=== PATIENT | male | born 1950 | race Caucasian/White ===

== ENCOUNTER 2017-03-23 09:46 | Day surgery (SDC) | payer BC, MEDICARE ==
--- NOTE | ~2017-03-23 | EGD ---
EGD REPORT [facility] [address] [place] [address] NAME: DONNIE MCCULLOUGH : [birth year] STATUS : REG [facility]#: [id number] AGE: 66 ADM/REG DATE : 03/23/17 MR#: [id number] REPORT SERV DATE: 03/23/17 DICTATED BY: ALISIA PEÑA DATE: 03/23/17 REPORT STATUS : Draft TRANSCRIBED BY: [employer] DATE: 03/23/17 [facility] Patient Name: Donnie Mccullough Date of : 1950 Attending MD: ALISIA PEÑA MD Procedure Date No Time: 03/23/2017 Procedure: Colonoscopy Indications: Rectal bleeding Referring MD: Vannessa Smith MD Medicines: as per anesthesia Complications: No immediate complications. Procedure: Pre-Anesthesia Assessment: - ASA Grade Assessment: III - A patient with severe systemic disease. After I obtained informed consent, the scope was passed under direct vision. Throughout the procedure, the patient's blood pressure, pulse, and oxygen saturations were monitored continuously. The PCF [id number] was introduced through the anus and advanced to the cecum, identified by appendiceal orifice and ileocecal valve. The colonoscopy was performed without difficulty. The patient tolerated the procedure. The quality of the bowel preparation was adequate to identify polyps. Findings: The perianal and digital rectal examinations were normal. A few small and large-mouthed diverticula were found in the transverse colon and in the ascending colon. Internal hemorrhoids were found during endoscopy and were mild. Impression: - Diverticulosis in the transverse colon and in the ascending colon. - Internal hemorrhoids. Recommendation: - Repeat colonoscopy in 5 years for surveillance. Procedure Code(s): --- Professional --- 42124, Colonoscopy, flexible, proximal to splenic flexure; diagnostic, with or without collection of specimen(s) by brushing or washing, with or without colon decompression (separate procedure) Diagnosis Code(s): --- Professional --- K64.8, Other hemorrhoids K57.30, Diverticulosis of large intestine without EGD REPORT [address] [facility] [place] [address] NAME: DONNIE MCCULLOUGH : [birth year] STATUS : REG [facility] [place] PAT#: [id number] AGE: 66 ADM/REG DATE : 03/23/17 MR#: [id number] REPORT SERV DATE: 03/23/17 DICTATED BY: ALISIA PEÑA. DATE: 03/23/17 REPORT STATUS : Draft TRANSCRIBED BY: [employer] DATE: 03/23/17 perforation or abscess without bleeding K62.5, Hemorrhage of anus and rectum CPT copyright 2013 [employer]. All rights reserved. The codes documented in this report are preliminary and upon apparel stock checker review may be revised to meet current compliance requirements. ALISIA PEÑA MD 03/23/2017 1:48 PM This report has been signed electronically. Number of Addenda: 0 Note Initiated On: 03/23/2017 1:14 PM Scope Withdrawal Time 0 hours 7 minutes [address] [place] [address] [place] [address]
[~2017-03-23 09:46] MED LIST: ASAB PO; CRESTOR10 PO; PLAVIX PO; PROBIOTIC; TOPXL25 PO; WATER PILL
== END 2017-03-23 23:59 | disposition home health service (06) ==
LOC: DMU 09:46
PROVIDERS: Internal Medicine Gastroenterology
PROC: 0DJD8ZZ Inspection of Lower Intestinal Tract, Via Natural or Artificial Opening Endoscopic (ICD-10-PCS; principal; 2017-03-23 11:30)
DX: K64.8 Other hemorrhoids (principal); K57.30 Diverticulosis of large intestine without perforation or abscess without bleeding; I25.10 Atherosclerotic heart disease of native coronary artery without angina pectoris; I10 Essential (primary) hypertension; E11.9 Type 2 diabetes mellitus without complications; E78.5 Hyperlipidemia, unspecified; E66.9 Obesity, unspecified; I25.2 Old myocardial infarction; M19.90 Unspecified osteoarthritis, unspecified site; E78.00 Pure hypercholesterolemia, unspecified; Z87.891 Personal history of nicotine dependence; Z90.49 Acquired absence of other specified parts of digestive tract; Z86.010 Personal history of colon polyps; Z98.890 Other specified postprocedural states
CPT/HCPCS: 82962